=== PATIENT | male | born 1965 | race Caucasian/White ===

== ENCOUNTER → 2018-05-03 | Outpatient (CLI) | payer BC | LOC: M.RAD 12:41 | DX: Z00.01 Encounter for general adult medical examination with abnormal findings (principal); I20.9 Angina pectoris, unspecified; R07.9 Chest pain, unspecified ==

== ENCOUNTER → 2018-06-26 | Outpatient (CLI) | payer BC ==
--- NOTE | 2018-06-26 11:24 | 2DMMODE ---
[place] [address] 2 D/M-MODE ECHOCARDIOGRAM Name: RAMÓN DANIEL Room: [facility]#: [id number] Admission: 06/26/18 Attend Phys: Harvinder White, Discharge: Date of : 61 Date of Service: 06/26/18 1124 Report #: [id number] THIS REPORT FOR: //name// APPROVED REPORT Study performed: 06/26/2018 09:38:12 EXAM: Comprehensive 2D, Doppler, and color-flow Echocardiogram Patient Location: Out-Patient Status: routine BSA: 2.42 HR: 61 bpm BP: 130/90 mmHg Other Information Study Quality: Good Indications Chest Pain 2D Dimensions LVEF(%): 74.17 (>50%) IVSd: 12.94 (7-11mm) LVOT Diam: 20.92 (18-24mm) LVDd: 54.39 mm PWd: 12.06 (7-11mm) Ascending Ao: 31.02 (22-36mm) LVDs: 30.73 (25-40mm) Aortic Root: 32.67 mm Alarcno's LVEF: 74.17 % Volumes Left Atrial Volume (Systole) LA ESV Index: 17.00 mL/m2 Aortic Valve AoV Peak Archie.: 1.20 m/s AO Peak Gr.: 5.80 mmHg LVOT Max P.30 mmHg AO Mean Gr.: 3.69 mmHg LVOT Mean P.00 mmHg LVOT Max V: 0.76 m/s AO V2 VTI: 24.91 cm LVOT Mean V: 0.45 m/s JED (VTI): 2.14 cm2 LVOT V1 VTI: 15.47 cm Mitral Valve E/A Ratio: 1.25 MV Decel. Time: 176.12 [place] [address] 2 D/M-MODE ECHOCARDIOGRAM Name: RAMÓN DANIEL Room: [facility]#: [id number] Admission: 06/26/18 Attend Phys: Harvinder White, Discharge: Date of : 61 Date of Service: 06/26/18 1124 Report #: [id number] MV E Max Archie.: 0.57 m/s MV PHT: 51.07 ms MVA (PHT): 4.31 cm2 TDI E/Lateral E': 3.80 E/Medial E': 3.80 Medial E' Archie.: 0.15 m/s Lateral E' Archie.: 0.15 m/s Pulmonary Valve PV Peak Archie.: 1.12 m/s PV Peak Gr.: 5.00 mmHg Tricuspid Valve RAP Estimate: 5.00 mmHg TR Peak Gr.: 19.58 mmHg RVSP: 24.58 mmHg PA Pressure: 24.58 mmHg Left Ventricle The left ventricle is normal size. There is normal LV segmental wall motion. Mild concentric left ventricular hypertrophy. Left ventricular systolic function is low normal. LVEF is 50%. The left ventricular diastolic function is normal. Right Ventricle The right ventricle is normal size. The right ventricular systolic function is normal. Atria The left atrium size is normal. The right atrium size is normal. Aortic Valve The aortic valve is normal in structure. No aortic regurgitation is present. There is no aortic valvular stenosis. Mitral Valve The mitral valve is normal in structure. Mild mitral regurgitation. No evidence of mitral valve stenosis. Tricuspid Valve The tricuspid valve is normal in structure. Mild tricuspid regurgitation. Pulmonic Valve The pulmonary valve is normal in structure. Mild [place] [address] 2 D/M-MODE ECHOCARDIOGRAM Name: RAMÓN DANIEL Room: [facility]#: [id number] Admission: 06/26/18 Attend Phys: Harvinder White, Discharge: Date of : 61 Date of Service: 06/26/18 1124 Report #: [id number] Great Vessels The aortic root is normal in size. IVC is normal in size and collapses with >50% inspiration Pericardium There is no pericardial effusion. <Conclusion> The left ventricle is normal size. Mild concentric left ventricular hypertrophy. LVEF is 50%. There is normal LV segmental wall motion. There is no aortic valvular stenosis. No aortic regurgitation is present. Mild mitral regurgitation. Mild tricuspid regurgitation. Mild pulmonic regurgitation. <ELECTRONICALLY SIGNED> By: Yang Alvarez MD, FACC 06/26/18 1124 1124 1124 Yang Alvarez MD, FACC /INF
--- NOTE | 2018-07-03 13:06 | PF ---
[place] [address] PULMONARY FUNCTION REPORT Name: RAMÓN DANIEL Room: [facility].#: [id number] Admission: 06/26/18 Attend Phys: Harvinder White MD Discharge: Date of : 61 Report #: [id number] THIS REPORT FOR: //name// CC: Harvinder White DATE OF SERVICE: 06/26/2018 PULMONARY FUNCTION TESTS The FEV1/FVC ratio is normal at 81% with an FVC mildly decreased to 78% and an FEV1 normal at 82%. The patient's FEV1 is noted to be 3 liters; this does not increase after the administration of a bronchodilator. There is no significant change in the patient's FVC after administration of bronchodilator either. The patient's [id number] is normal at 89. The total lung capacity is mildly decreased to 77% with residual volume also decreased to 63%. DLCO as adjusted for hemoglobin is normal at 93%. IMPRESSION: There is a mild restrictive pattern with a total lung capacity mildly decreased to 77%, likely secondary to obesity. The patient's DLCO is normal. <ELECTRONICALLY SIGNED> By: Henrik Lua MD 07/03/18 1306 1307 [id number] Lua MD /nt
== END ==
LOC: M.CRD 08:00
DX: I08.1 Rheumatic disorders of both mitral and tricuspid valves (principal); I10 Essential (primary) hypertension; I20.9 Angina pectoris, unspecified; E66.9 Obesity, unspecified; Z82.49 Family history of ischemic heart disease and other diseases of the circulatory system

== ENCOUNTER → 2018-08-07 | Outpatient (CLI) | payer BC ==
[2018-08-07] VITALS (8 sets, daily range): BP systolic 128–184; BP diastolic 79–94
[~2018-08-07] VITALS: Ht 175.3 cm; Wt 132.9 kg
[2018-08-07 11:25] LABS: APTT 28.7 Seconds (25.0-31.3); PROTIME 10.7 Seconds (9.20-11.50)
[2018-08-07 11:53] LABS: HEMOGLOBIN 13.1 gm/dL (14.0-18.0); MCHC 33.5 g/dL (28.0-37.0); MCV 95.5 fL (80.0-100.0); MPV 7.9 fl. (7.2-11.1); RBC 4.08 mil/uL (4.50-6.00); RDW-CV 13.3 % (10.5-14.5); WBC 5.5 thou/uL (4.0-11.0)
[2018-08-07 12:02] LABS: ANION GAP 7 mmol/L (7-16); BUN 16 mg/dL (7-18); CALCIUM 9.1 mg/dL (8.5-10.1); CHLORIDE 105 mmol/L (98-107); CO2 26 mmol/L (21-32); CREATININE 1.1 mg/dL (0.6-1.3); GLUCOSE 115 mg/dL (70-99); POTASSIUM 3.8 mmol/L (3.5-5.1); SODIUM 138 mmol/L (136-145)
[2018-08-07 12:06] LABS: ALKALINE PHOSPHATASE 49 U/L (46-116); CHOLESTEROL 223 mg/dL (<200); HDL CHOLESTEROL 55 mg/dL (>40); LDL CHOLESTEROL 151 mg/dL (<100); SGOT 28 U/L (15-37); SGPT 35 U/L (30-65); TC:HDL 4.1 Ratio (Not establshd); TOTAL BILIRUBIN 0.7 mg/dL (<0.1-1.0); TOTAL PROTEIN 7.7 g/dL (6.4-8.2); TRIGLYCERIDE 86 mg/dL (<150); VLDL 17 mg/dL (<40)
[2018-08-07 12:08] LABS: SERUM ASSESSMENT Clear
--- NOTE | 2018-08-07 17:30 | EKG ---
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
--- NOTE | 2018-08-08 08:48 | H ---
[address] [address] HISTORY AND PHYSICAL Name: MARÍARAMÓN RENEE Room: [facility].#: [id number] Admission: 08/07/18 Attend Phys: Del Rivera MD Discharge: Date of : 61 Report #: [id number] THIS REPORT FOR: //name// CC: Harvinder Rivera TYPE OF REPORT: Cardiology admission history and physical. INDICATION: Abnormal CV functional study and dyspnea. HISTORY OF PRESENT ILLNESS: The patient is a very pleasant 52-year-old gentleman who was initially evaluated for complaints of exertional dyspnea associated with diaphoresis. Stress testing suggested stress-induced ischemia. The patient presents for cardiac catheterization. He is not having roman chest pain. He is without other cardiac complaint. PAST MEDICAL HISTORY: 1. Hypertension. 2. Mixed hyperlipidemia. PAST SURGICAL HISTORY: Ankle surgery x 5 to the right, left ankle surgery previously, rotator cuff repair and tonsillectomy. FAMILY HISTORY: Noncontributory. SOCIAL HISTORY: The patient is a lifelong nonsmoker. He drinks alcohol occasionally. ALLERGIES: None documented. CURRENT MEDICATIONS: Hydrocodone/acetaminophen 10/325 p.r.n. and lisinopril 20 mg daily. PHYSICAL EXAMINATION: VITAL SIGNS: Stable. Blood pressure 128/82 and pulse 64 and regular. GENERAL: This is a pleasant gentleman, in no distress. Mood and affect appropriate. HEENT: Extraocular muscles intact. Mucous membranes are moist. NECK: Shows no jugular venous distention. There are no carotid bruits. CHEST: Reveals clear lung chiu without wheezes or rales. CARDIOVASCULAR: Reveals a regular rhythm without gallop or murmur. ABDOMEN: Reveals a slightly protuberant abdomen. Soft and nontender. EXTREMITIES: Shows no edema. Peripheral pulses are 2+ and easily palpable. SKIN: Warm and dry. IMPRESSION AND RECOMMENDATIONS: [place] [address] HISTORY AND PHYSICAL Name: RAMÓN DANIEL Room: [facility]#: [id number] Admission: 08/07/18 Attend Phys: Del Rivera MD Discharge: Date of : 61 Report #: [id number] 1. Exertional dyspnea with diaphoresis and abnormal CV functional study. Proceed with cardiac catheterization and coronary angiography to evaluate for possible underlying coronary artery disease. 2. Hypertension, adequately controlled. 3. Hyperlipidemia. Consider initiating cholesterol lowering agent if he is found to have significant coronary artery disease. <ELECTRONICALLY SIGNED> By: Del Rivera MD, FACC 08/08/18 0848 1409 1421[facility] centerlady Rivera MD, FACC /nt
--- NOTE | 2018-08-08 18:16 | CARD ---
[address] [address] CARDIAC CATH REPORT Name: RAMÓN DANIEL Room: [facility] Ria#: [id number] Admission: 08/07/18 Attend Phys: Del Rivera MD Discharge: Date of : 61 Report #: [id number] THIS REPORT FOR: //name// APPROVED REPORT Study performed: 08/07/2018 12:31:21 Patient Details Patient Status: Out-Patient Room #: The patient is a 52 year-old male Event Personnel Del Rivera Cremator, Freda Gallego RN Monitor, Tia Garsia RTR Scrub, Alphonse Mcmanus (R) Scrub, Faviola Bailon RN Dsp Engineer Procedures Performed Art Access - R radial artery Left Heart Cath w/or w/o Coronaries [id number] [facility] Hemostasis with Hemoband Indication Positive stress test, Chest pain Admission/Lab Medications/Medications given during procedure Heparin IV 5000 units Procedure Narrative The patient was brought electively to the Cardiac Catheterization Laboratory and was prepped and draped in a sterile manner. The right femoral was infiltrated with 1% Lidocaine subcutaneous anesthesia. A Slender Glidesheath sheath was inserted into the right radial artery. Coronary angiography was performed using coronary diagnostic catheters. The right coronary system was accessed and visualized with a 3DRC 6fr catheter. The left coronary system was accessed and visualized with a [place] 4.0 5fr catheter. The left ventricle was accessed and visualized with a Angled Pig catheter. Left ventriculogram was performed in CHO projection. The patient tolerated the procedure well and there were no complications associated with the procedure. Intraoperative Conscious Sedation Fentanyl 50 mcg Versed 2 mg Dose: 1336 mGy Contrast Type and Amount: Omnip[place] [address] [place] [address] CARDIAC CATH REPORT Name: MARÍARAMÓN DEL Room: [facility]#: [id number] Admission: 08/07/18 Attend Phys: Del Rivera MD Discharge: Date of : 61 Report #: [id number] Coronary Angiography The patient's coronary anatomy is right dominant. Diagnostic Cath Left Main Normal LAD Normal proximally with 10% narrowing at the takeoff of a first diagonal branch. The distal vessel is normal. Diagonal 1 Normal large in branch. Circumflex Normal. OM1 Normal large in branch. OM2 Normal. Right Coronary Large in caliber and normal. R PDA Normal. RPLV Normal. Left Ventriculography The left ventricle is normal in size with normal contractility. The left ventricular ejection fraction is estimated to be 60-65%. Hemodynamics The aortic pressure is 124/82 mmHg with a mean of 101 mmHg. The left ventricular pressure is 129/7 mmHg with a mean of mmHg. The left ventricular end diastolic pressure is 20 mmHg. Conclusion 1. Normal coronary arteries. 2. Normal left ventricular systolic function. Recommendations 1. Continue current medical management. <ELECTRONICALLY SIGNED> By: Del Rivera MD, FACC 08/08/181814 14 14Michaelady Rivera MD, FACC /INF
== END | disposition home or self-care (01) ==
LOC: M.CL 10:34
PROVIDERS: Internal Medicine Cardiovascular Disease
DX: R94.39 Abnormal result of other cardiovascular function study (principal); I10 Essential (primary) hypertension; E78.2 Mixed hyperlipidemia; Z98.890 Other specified postprocedural states; Z79.899 Other long term (current) drug therapy; Z79.891 Long term (current) use of opiate analgesic